=== PATIENT | male | born 1955 | race Caucasian/White ===

== ENCOUNTER → 2021-06-03 | Outpatient (CLI) | payer OTHER ==
[2016-11-04 18:17] VITALS: BP 154/75
[~2021-06-03] MED LIST: LISI2.5T12 PO
--- NOTE | 2021-06-03 16:47 | RAD ---
EXAM: Right inguinal sonogram. HISTORY: Swelling. TECHNIQUE: Sonographic imaging of the right inguinal region at the site of reported concern was perfo rmed. COMPARISON: None. FINDINGS: No inguinal hernia is seen. There are a few small inguinal lymph nodes which demonstrate be nign morphology, including thin cortices and fatty eric. The largest of these measures 2.8 cm in long axis. No lymph node with suspicious morphology is seen. IMPRESSION: 1. Benign-appearing right inguinal lymph nodes. 2. No evidence of a right inguinal hernia or suspicious mass. Electronically signed by: Sandie Tompkins MD (06/03/2021 4:44 PM) [id number]
== END ==
LOC: US 14:48
PROVIDERS: ATTEND Nurse Practitioner
DX: R59.0 Localized enlarged lymph nodes (principal); R19.09 Other intra-abdominal and pelvic swelling, mass and lump
CPT/HCPCS: 76881

== ENCOUNTER → 2021-06-09 | Outpatient (CLI) | payer OTHER ==
[2016-11-04 18:17] VITALS: BP 154/75
[~2021-06-09] MED LIST changes: +CONTRAST GIVEN. MC PRN; +IOHEXOL 300 MG/ML 100ML VIAL. IV ONE
[2021-06-09 13:43] LABS: CREATININE 1.1 mg/dL (0.7-1.3); GFR 67.2
--- NOTE | 2021-06-09 15:28 | RAD ---
Examination: CT pelvis with IV contrast HISTORY: History of right groin pain COMPARISON: 10/18/2014 TECHNIQUE: Axial CT images of the pelvis were performed with IV contrast. Coronal and sagittal reform ats are performed Exposure: One or more of the following individualized dose reduction techniques were utilized for thi s examination: 1. Automated exposure control 2. Adjustment of the mA and/or kV according to patient size 3. Use of iterative reconstruction technique FINDINGS: Is mildly distended. Mildly enlarged prostate gland. Cystic structure identified in the inferior pole of the right kidney measuring 3.7 cm likely cyst. The small bowel is nondilated. Appendix is normal. Few benign-appearing bilateral inguinal lymph nodes are identified. IMPRESSION: 1. Benign-appearing bilateral inguinal nodes. Electronically signed by: Arturo Mena MD (06/09/2021 3:26 PM) [id number]
== END ==
LOC: CT 13:16
PROVIDERS: ATTEND Surgery
DX: N28.1 Cyst of kidney, acquired (principal); N40.0 Benign prostatic hyperplasia without lower urinary tract symptoms
CPT/HCPCS: 36415; 72193; 82565; 84520; Q9967